=== PATIENT | female | born 1960 | race Hispanic/Latino ===

== ENCOUNTER 2018-05-08 16:06 | Inpatient (IN) | payer SELFPAY ==
[~2018-05-08] VITALS: Ht 149.9 cm; Wt 72.3 kg
[2018-05-08 16:39] LABS: BASOPHILS % (AUTO) 0.7 % (0.0-5.0); EOSINOPHILS % (AUTO) 0.2 % (0.0-8.0); HEMATOCRIT 38.4 % (36-48); LYMPHOCYTES % (AUTO) 12.6 % (21.0-51.0); MEAN CORPUSCULAR HEMOGLOBIN 31.2 pg (27.0-33.0); MEAN CORPUSCULAR HGB CONC 34.7 g/dL (32.0-36.0); MEAN CORPUSCULAR VOLUME 89.8 fL (79-99); NEUTROPHILS % (AUTO) 78.5 % (40.0-77.0); PLATELET COUNT (AUTO) 278 K/uL (130-400); RED BLOOD CELL COUNT(AUTO) 4.28 MIL/uL (4.00-5.50); RED CELL DISTRIBUTION WIDTH 13.1 % (11.0-15.5)
[2018-05-08 16:50] LABS: CREATININE 0.7 mg/dL (0.5-1.5); POTASSIUM 3.4 mmol/L (3.5-5.1)
[2018-05-08 16:55] LABS: ALBUMIN 3.4 g/dL (3.5-5.0); BILIRUBIN,TOTAL 0.7 mg/dL (0.2-1.0); TOTAL PROTEIN, SERUM 7.9 g/dL (6.0-8.3)
[2018-05-08] MEDS ORDERED: SODIUM CHLORIDE 0.9% 1000ML 1,000 ML IV ONE (17:06)
[2018-05-08] MEDS ORDERED: KETOROLAC TROMETHAMINE 30MG/ML ONE ×2 (17:06→21:15)
[2018-05-08] MEDS ORDERED: LACTATED RINGERS 1000ML 1,000 ML IV ONE (19:40)
[2018-05-08] MEDS ORDERED: ZOSYN 3.375GM+NS 50ML 50 ML IV ONE (19:40)
[2018-05-08] MEDS ORDERED: SODIUM CHLORIDE 0.9% 100 ML IV ONE (19:41)
[2018-05-08 22:15] VITALS: BP 144/71
[2018-05-08] MEDS: LACTATED RINGERS 1000ML 1,000 ML IV SCH (23:48)
[2018-05-09] MEDS: MORPHINE SULFATE 2 MG/ML 1ML SYG IVP PRN ×2 (03:25→14:40)
[2018-05-09] MEDS: ZOSYN 3.375GM+NS 50ML 50 ML IV SCH ×3 (03:58→16:29)
[2018-05-09] MEDS ORDERED: ZOSYN 3.375GM+NS 50ML 50 ML IV SCH (04:00)
[2018-05-09 04:48] VITALS: BP 113/59
[2018-05-09] MEDS: LACTATED RINGERS 1000ML 1,000 ML IV SCH (05:45)
[2018-05-09 05:46] LABS: HEMATOCRIT 31.9 % (36-48); MEAN CORPUSCULAR HEMOGLOBIN 30.7 pg (27.0-33.0); MEAN CORPUSCULAR HGB CONC 33.8 g/dL (32.0-36.0); MEAN CORPUSCULAR VOLUME 90.9 fL (79-99); PLATELET COUNT (AUTO) 165 K/uL (130-400); RED BLOOD CELL COUNT(AUTO) 3.51 MIL/uL (4.00-5.50); RED CELL DISTRIBUTION WIDTH 12.9 % (11.0-15.5)
[2018-05-09 06:11] LABS: CREATININE 0.7 mg/dL (0.5-1.5); POTASSIUM 3.2 mmol/L (3.5-5.1)
[2018-05-09 07:41] VITALS: BP 125/60
[2018-05-09 11:26] VITALS: BP 119/62
[2018-05-09] MEDS: ONDANSETRON HCL MDV 20ML 2 MG/ML VIAL IVP PRN (14:39)
[2018-05-09 16:33] VITALS: BP 131/55
[2018-05-09 20:00] VITALS: BP 108/45
[2018-05-09 23:24] VITALS: BP 109/49
[2018-05-10] VITALS (17 sets, daily range): BP systolic 114–150; BP diastolic 54–81
[2018-05-10] MEDS: ZOSYN 3.375GM+NS 50ML 50 ML IV SCH ×4 (00:35→23:57)
[2018-05-10] MEDS: LACTATED RINGERS 1000ML 1,000 ML IV SCH ×5 (00:36→23:53)
[2018-05-10] MEDS: MORPHINE SULFATE 2 MG/ML 1ML SYG IVP PRN ×3 (02:20→21:23)
[2018-05-10 05:54] LABS: BASOPHILS % (AUTO) 0.6 % (0.0-5.0); EOSINOPHILS % (AUTO) 1.2 % (0.0-8.0); HEMATOCRIT 32.3 % (36-48); LYMPHOCYTES % (AUTO) 18.4 % (21.0-51.0); MEAN CORPUSCULAR HEMOGLOBIN 31.9 pg (27.0-33.0); MEAN CORPUSCULAR HGB CONC 35.2 g/dL (32.0-36.0); MEAN CORPUSCULAR VOLUME 90.5 fL (79-99); MONOCYTES % (AUTO) 8.9 % (3.0-13.0); NEUTROPHILS % (AUTO) 70.9 % (40.0-77.0); PLATELET COUNT (AUTO) 209 K/uL (130-400); RED BLOOD CELL COUNT(AUTO) 3.57 MIL/uL (4.00-5.50); RED CELL DISTRIBUTION WIDTH 12.7 % (11.0-15.5); WHITE BLOOD COUNT (AUTO) 7.9 K/uL (4.8-10.8)
[2018-05-10 06:06] LABS: CREATININE 0.7 mg/dL (0.5-1.5); POTASSIUM 3.1 mmol/L (3.5-5.1)
[2018-05-10] MEDS ORDERED: POTASSIUM CHLORIDE 20MEQ/100ML 100 ML IV PRN (09:30)
[2018-05-10] MEDS ORDERED: LIDOCAINE HCL-MPF 1% 2ML VIAL IVP PRN (09:30)
[2018-05-10] MEDS: ONDANSETRON HCL MDV 20ML 2 MG/ML VIAL IVP PRN ×2 (11:34→21:23)
[2018-05-10] MEDS ORDERED: MIDAZOLAM HCL 1 MG/ML 2ML VIAL ONE (12:27)
[2018-05-10] MEDS ORDERED: PROPOFOL 10 MG/ML 20ML VIAL IV ONE (12:34)
[2018-05-10] MEDS ORDERED: ONDANSETRON HCL 4 MG/2 ML VIAL ONE (12:34)
[2018-05-10] MEDS ORDERED: SUCCINYLCHOLINE CHLORIDE 20 MG/ML 10 ML VIAL ONE ×2 (12:34→13:23)
[2018-05-10] MEDS ORDERED: LIDOCAINE PF 2% 5ML ABBOJECT ONE (12:34)
[2018-05-10] MEDS ORDERED: ROCURONIUM 10MG/1ML SYR 10 MG/ML ML ONE (12:34)
[2018-05-10] MEDS ORDERED: FENTANYL CITRATE PF 50 MCG/1 ML 2ML VIAL ONE ×2 (12:35→13:21)
[2018-05-10] MEDS ORDERED: EPHEDRINE SULFATE 50 MG/ML AMPULE ONE (12:55)
[2018-05-10] MEDS ORDERED: POTASSIUM CHLORIDE 10% ELIXIR 20 MEQ/15 ML UDCUP PO PRN (21:30)
[2018-05-10] MEDS ORDERED: POTASSIUM CHLORIDE 20 MEQ ERTAB PO ONE (21:32)
[2018-05-10] MEDS: POTASSIUM CHLORIDE 20 MEQ ERTAB PO PRN (23:57)
[2018-05-11 00:24] VITALS: BP 159/82
[2018-05-11] MEDS: LACTATED RINGERS 1000ML 1,000 ML IV SCH ×2 (03:01→13:13)
[2018-05-11 04:06] VITALS: BP 147/73
[2018-05-11] MEDS: POTASSIUM CHLORIDE 20 MEQ ERTAB PO PRN ×3 (04:42→09:10)
[2018-05-11 05:20] LABS: BASOPHILS % (AUTO) 0.3 % (0.0-5.0); EOSINOPHILS % (AUTO) 0.2 % (0.0-8.0); HEMATOCRIT 31.8 % (36-48); LYMPHOCYTES % (AUTO) 10.9 % (21.0-51.0); MEAN CORPUSCULAR HEMOGLOBIN 30.9 pg (27.0-33.0); MEAN CORPUSCULAR HGB CONC 34.5 g/dL (32.0-36.0); MEAN CORPUSCULAR VOLUME 89.6 fL (79-99); NEUTROPHILS % (AUTO) 81.6 % (40.0-77.0); PLATELET COUNT (AUTO) 204 K/uL (130-400); RED BLOOD CELL COUNT(AUTO) 3.55 MIL/uL (4.00-5.50); RED CELL DISTRIBUTION WIDTH 12.8 % (11.0-15.5); WHITE BLOOD COUNT (AUTO) 9.7 K/uL (4.8-10.8)
[2018-05-11] MEDS: ACETAMINOPHEN-CODEINE 300/30MG TAB PO PRN ×2 (06:20→11:17)
[2018-05-11 08:00] VITALS: BP 135/72
[2018-05-11] MEDS: ZOSYN 3.375GM+NS 50ML 50 ML IV SCH ×2 (09:10→15:36)
[2018-05-11 10:55] VITALS: BP 146/61
[2018-05-11] MEDS ORDERED: ACET1TAB12 PO (11:17)
== END 2018-05-11 16:10 | disposition home or self-care (01) | DRG 419 ==
LOC: EDH 16:06 → EDHIP 16:07 → 4BH 21:46
PROVIDERS: ADMIT Surgery; ATTEND Surgery
PROC: 0FT44ZZ Resection of Gallbladder, Percutaneous Endoscopic Approach (ICD-10-PCS; principal; 2018-05-10 12:25)
DX: K80.00 Calculus of gallbladder with acute cholecystitis without obstruction (principal)
CPT/HCPCS: 36415; 76705; 80048; 80053; 83690; 84132; 85025; 85027; 87040; 88304; J0330; J1885; J2001; J2250; J2405; J2543; J2704; J3010; J3490; J7030; J7120